=== PATIENT | female | born 1950 | race Caucasian/White ===

== ENCOUNTER → 2024-12-25 | Day surgery (SDC) | payer MEDICARE ==
[2024-12-19 11:33] LABS: BASOPHILS # (AUTO) 0.1 (0.0-0.1); BASOPHILS % 0.9 % (0.0-1.0); EOSINOPHILS # (AUTO) 0.1 (0.0-0.4); EOSINOPHILS % 1.3 % (0.0-6.0); HEMATOCRIT 40.3 % (34.2-44.1); HEMOGLOBIN 13.2 g/dL (12.0-16.0); LYMPHOCYTES # (AUTO) 1.6 (1.0-3.2); LYMPHOCYTES % 30.1 % (18.0-39.1); MEAN CORPUSCULAR HEMOGLOBIN 31.9 pg (28-32); MEAN CORPUSCULAR HGB CONC 32.8 g/dL (31-35); MEAN CORPUSCULAR VOLUME 97.3 fL (81-99); MONOCYTES # (AUTO) 0.5 (0.2-0.8); NEUTROPHILS # (AUTO) 3.2 (2.1-6.9); NEUTROPHILS % 58.3 % (38.7-80.0); PLATELET COUNT 250 x10e3/uL (140-360); RED BLOOD COUNT 4.14 x10e6/uL (3.6-5.1); RED CELL DISTRIBUTION WIDTH 13.2 % (11.7-14.4); WHITE BLOOD COUNT 5.44 x10e3/uL (4.8-10.8)
[~2024-12-25] MED LIST: ACETAMINOPHEN-1 EAC4 PO; ALLERCLEAR10 MG; ASPIRIN81 MG PO; CALCIUM ACETAT667 M1 PO; COD LIVER OIL1 EAC2; FISH OIL 1,0001 EAC7; GLUCOSAMINE &1 EACH; HUPERZINE SERRAT1 GM; IPRATROPIU0.2 MG/1 M INH; LEVOTHYROXINE50 MCG PO; LIDOCAINE HCL 2% LOCAL INJ 5 ML SDV VIAL INJ ONE; MAGNESIUM250 M2 PO; MIDAZOLAM HCL 2 MG/2 ML VIAL ONE; MYCOPHENOLATE250 MG PO; PRESERVISION A1 EAC6; PROPOFOL IV EMULSION 10 MG/ML 20 ML VIAL ONE; TUMERIC; VENTOLIN HFA18 GM INH; [UNRECOGNIZED DRUG - OTHER]; [UNRECOGNIZED DRUG - OTHER] SQ
[2024-12-25] MEDS: LACTATED RINGER'S 1,000 ML ONE (06:15)
[2024-12-25 08:16] VITALS: TEMP 97.3
[2024-12-25 08:50] VITALS: BP 133/61; PULSE 82; RESP 16; O2SAT 99
== END | disposition home or self-care (01) ==
LOC: OR 05:48
PROVIDERS: ATTEND Plastic Surgery
DX: D17.9 Benign lipomatous neoplasm, unspecified (principal); G61.81 Chronic inflammatory demyelinating polyneuritis; G89.29 Other chronic pain; E03.9 Hypothyroidism, unspecified; K44.9 Diaphragmatic hernia without obstruction or gangrene; R06.02 Shortness of breath; Z01.810 Encounter for preprocedural cardiovascular examination; Z01.812 Encounter for preprocedural laboratory examination; Z01.818 Encounter for other preprocedural examination; Z79.82 Long term (current) use of aspirin; Z79.899 Other long term (current) drug therapy; Z85.118 Personal history of other malignant neoplasm of bronchus and lung; Z92.3 Personal history of irradiation
CPT/HCPCS: 23073; 36415; 71046; 85025; 88304; 93005; J0690; J2003; J2250; J2704; J7121